=== PATIENT | female | born 1965 | race Caucasian/White ===

== ENCOUNTER 2022-10-25 11:27 | Emergency (ER) | payer OTHER ==
[~2022-10-25] VITALS: Ht 152.4 cm; Wt 81.6 kg
[2022-10-25 11:32] VITALS: BP 151/95
--- NOTE | 2022-10-25 11:45 | NUR ---
57YO FEMALE PT [facility] C/O 04/19 HEAD PAIN DUE TO FALL. REPORTS MECH FALL OVER STAIRS AFTER CHILD PULLED ON HER ARM +HEADINJURY -LOC -BLOODTHINNERS. PRESENTS WITH ABRASION AND REDDENED SWELLING IN BACK OF HEAD, NO ACTIVE BLEEDING. NOTES MILD NAUSEA. DENIES V/D, CHEST PAIN, FVER OR CHILLS. PT AAOX4, NO VISIBLE DISTRESS. SPEAKING IN CLEAR SENTENCES. RESPIRATIONS EVEN AND UNLABORED. HX: HTN, DIABETES NKA
--- NOTE | 2022-10-25 12:07 | NUR ---
PT TAKEN TO CT VIA [facility]
[2022-10-25] MEDS ORDERED: HYDROcodone/APAP 5/325 MG 1 TAB TAB PO ONE (12:20)
[2022-10-25] MEDS ORDERED: ONDANSETRON 4 MG ODT PO ONE (12:20)
[2022-10-25] MEDS ORDERED: IBUP-2213 PO (13:02)
[2022-10-25 13:26] VITALS: BP 148/85
--- NOTE | 2022-10-25 13:26 | NUR ---
Patient discharged with v/s stable. Written and verbal after care instructions FOR HEAD INJURY AND ABRASION given and explained. Patient alert, oriented and verbalized understanding of instructions. Ambulatory with steady gait. All questions addressed prior to discharge. ID band removed. Patient advised to follow up with PMD. Rx of IBUPROFEN given. Opportunity to ask questions provided and answered.
--- NOTE | 2022-10-25 13:26 | NUR ---
The patient's care was reviewed and supervised by Cas Andrew RN.
== END 2022-10-25 13:26 | disposition home or self-care (01) ==
LOC: MED 11:27
DX: S00.03XA Contusion of scalp, initial encounter (principal); E11.9 Type 2 diabetes mellitus without complications; I10 Essential (primary) hypertension; Z79.899 Other long term (current) drug therapy; W18.09XA Striking against other object with subsequent fall, initial encounter; Y93.89 Activity, other specified; Y92.89 Other specified places as the place of occurrence of the external cause; Y99.8 Other external cause status
CPT/HCPCS: 70450; 99284; Q0162